=== PATIENT | male | born 2000 | race Caucasian/White ===

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

== ENCOUNTER 2021-09-10 00:57 | Emergency (ER) | payer OTHER ==
[2021-09-10 01:23] VITALS: BP 145/51; PULSE 110; TEMP 97.6; BMI 21.5
[2021-09-10 02:43] LABS: BASO % 0.7 % (0-2.0); EOS % 1.5 % (0-4.5); HEMATOCRIT 43.8 % (35.4-49); HEMOGLOBIN 14.9 GM/dL (11.7-16.9); LYMPH % 11.2 % (8-40); MCH 29.3 pg (25.7-33.7); MEAN CELL VOLUME 86.2 fl (80-96); MEAN PLT VOLUME 7.6 fl (7.5-11.1); MONO % 5.8 % (3.8-10.2); NEUT % 80.8 % (42.8-82.8); PLATELET COUNT 247 10^3/uL (134-434); RBC 5.08 M/mm3 (4.00-5.60); RDW 13.2 % (11.9-15.9); WHITE BLOOD COUNT 9.9 K/mm3 (4.0-10.0)
[2021-09-10 03:04] LABS: CALCIUM 9.2 mg/dL (8.5-10.1)
[2021-09-10 03:05] LABS: ALBUMIN 4.6 g/dl (3.4-5.0); BLOOD UREA NITROGEN 16.2 mg/dL (7-18); MAGNESIUM 2.1 mg/dL (1.8-2.4)
[2021-09-10 03:08] LABS: CREATININE 0.9 mg/dL (0.55-1.3)
[2021-09-10 03:09] LABS: BILIRUBIN,TOTAL 0.7 mg/dL (0.2-1)
[2021-09-10 03:10] LABS: TOT PROT 7.8 g/dl (6.4-8.2)
== END 2021-09-10 03:48 | disposition home or self-care (01) ==
LOC: JER 00:57
DX: R00.2 Palpitations (principal)
CPT/HCPCS: 36415; 71045-TC-FY; 80053; 82962; 83735; 84443; 84484; 85025; 93005; 93010; 99285-25

== ENCOUNTER 2022-05-13 01:21 | Emergency (ER) | payer OTHER ==
[2022-05-13 02:00] VITALS: BP 137/78; PULSE 74; RESP 16; TEMP 98; BMI 27.3
[2022-05-13 02:42] LABS: URINE APPEARANCE CLEAR; URINE BILIRUBIN NEGATIVE (NEGATIVE); URINE COLOR YELLOW; URINE GLUCOSE (UA) NEGATIVE (NEGATIVE); URINE KETONE TRACE (NEGATIVE); URINE LEUK ESTERASE NEGATIVE (NEGATIVE); URINE NITRITE NEGATIVE (NEGATIVE); URINE PROTEIN TRACE (NEGATIVE)
== END 2022-05-13 03:18 | disposition home or self-care (01) ==
LOC: JER 01:21
DX: I86.1 Scrotal varices (principal); N50.812 Left testicular pain
CPT/HCPCS: 36415; 76870-TC; 81003; 87086; 87491; 87591; 99284-25

== ENCOUNTER 2022-07-12 20:05 | Emergency (ER) | payer OTHER ==
[2022-07-12 20:22] VITALS: BP 117/70; PULSE 92; RESP 22; TEMP 98.3; BMI 27.9
[2022-07-12 21:39] LABS: THROAT:GRP A STREP NOT DETECTED (NOTDETECTED)
[2022-07-13] MEDS ORDERED: KETOROLAC TROMETHAMINE 30 MG/1 ML VIAL IM ONE (00:43)
[2022-07-13] MEDS ORDERED: DEXAMETHASONE SOD PHOSPHATE 10 MG/1 ML VIAL IM ONE (00:43)
[2022-07-13] MEDS ORDERED: ACETAMINOPHEN 325 MG TABLET (FP) PO ONE (00:43)
[2022-07-13] MEDS ORDERED: DEXAMETHASONE SOD PHOSPHATE 10 MG/1 ML VIAL ONE (00:44)
[2022-07-13] MEDS ORDERED: KETOROLAC TROMETHAMINE 30 MG/1 ML VIAL ONE (00:45)
[2022-07-13] MEDS ORDERED: ACETAMINOPHEN 325 MG TABLET (FP) ONE (00:45)
== END 2022-07-13 02:08 | disposition home or self-care (01) ==
LOC: JERFT 20:05 → JER 20:05
PROC: 3E033GC Introduction of Other Therapeutic Substance into Peripheral Vein, Percutaneous Approach (ICD-10-PCS; principal; 2022-07-13)
PROC: 3E0333Z Introduction of Anti-inflammatory into Peripheral Vein, Percutaneous Approach (ICD-10-PCS; 2022-07-13)
DX: R07.0 Pain in throat (principal); R05.9 Cough, unspecified; R09.81 Nasal congestion; J06.9 Acute upper respiratory infection, unspecified; Z20.822 Contact with and (suspected) exposure to COVID-19
CPT/HCPCS: 0241U-QW; 71046-TC-FY; 87070; 87651; 93005; 93010; 99285-25; J1100

== ENCOUNTER 2023-04-18 18:30 | Emergency (ER) | payer SELFPAY ==
[2023-04-18 18:35] VITALS: BP 130/82; PULSE 110; RESP 18; TEMP 98.5; BMI 25.8
[2023-04-18] MEDS ORDERED: ONDANSETRON *ODT* 4 MG TABLET ONE ×2 (19:28→20:51)
[2023-04-18] MEDS: ONDANSETRON *ODT* 4 MG TABLET SL ONE (19:29)
[2023-04-18] MEDS: ONDANSETRON 4 MG/2 ML VIAL IVPB ONE (19:30)
[2023-04-18] MEDS: ONDANSETRON 4 MG TABLET PO ONE (21:19)
[2023-04-18] MEDS: SODIUM CHLORIDE 0.9% 500 ML INFUS.BAG IV ONE (21:19)
== END 2023-04-18 21:20 | disposition home or self-care (01) ==
LOC: JER 18:30
DX: R11.2 Nausea with vomiting, unspecified (principal); R09.81 Nasal congestion; R05.9 Cough, unspecified; M79.10 Myalgia, unspecified site; R50.9 Fever, unspecified; J10.1 Influenza due to other identified influenza virus with other respiratory manifestations; Z20.822 Contact with and (suspected) exposure to COVID-19
CPT/HCPCS: 0241U-QW; 99283-25; Q0162

== ENCOUNTER 2023-08-25 23:23 | Emergency (ER) | payer SELFPAY ==
[2023-08-25 23:29] VITALS: BP 103/61; PULSE 101; RESP 20; TEMP 98.8; BMI 24.0
[2023-08-26] MEDS ORDERED: DIPHTH,PERTUSS(ACELL),TET 0.5 ML DISP.SYRIN IM ONE (00:15)
[2023-08-26] MEDS: DIPHTH,PERTUSS(ACELL),TET 0.5 ML DISP.SYRIN IM ONE (00:19)
== END 2023-08-26 00:42 | disposition home or self-care (01) ==
LOC: JER 23:23
PROC: 0HQ1XZZ Repair Face Skin, External Approach (ICD-10-PCS; principal; 2023-08-25)
PROC: 3E0234Z Introduction of Serum, Toxoid and Vaccine into Muscle, Percutaneous Approach (ICD-10-PCS; 2023-08-26)
DX: S01.112A Laceration without foreign body of left eyelid and periocular area, initial encounter (principal); S50.311A Abrasion of right elbow, initial encounter; S30.811A Abrasion of abdominal wall, initial encounter; W01.198A Fall on same level from slipping, tripping and stumbling with subsequent striking against other object, initial encounter; Y93.67 Activity, basketball; Z23 Encounter for immunization
CPT/HCPCS: 90715; 99284-25

== ENCOUNTER 2023-09-04 07:40 | Emergency (ER) | payer SELFPAY ==
[2023-09-04 07:51] VITALS: BP 115/69; PULSE 70; RESP 18; TEMP 98.2; BMI 24.3
== END 2023-09-04 08:12 | disposition home or self-care (01) ==
LOC: JERFT 07:40 → JER 07:40 → JERFT 08:12
DX: Z48.02 Encounter for removal of sutures (principal)
CPT/HCPCS: 99281-25

== ENCOUNTER 2024-01-19 01:02 | Emergency (ER) | payer SELFPAY ==
[2024-01-19 01:12] VITALS: BP 120/70; PULSE 66; RESP 20; TEMP 98; BMI 26.1
== END 2024-01-19 02:57 | disposition home or self-care (01) ==
LOC: JER 01:02
PROC: 0XQWXZZ Repair Left Little Finger, External Approach (ICD-10-PCS; principal; 2024-01-19)
DX: S61.215A Laceration without foreign body of left ring finger without damage to nail, initial encounter (principal); S61.217A Laceration without foreign body of left little finger without damage to nail, initial encounter; S61.210A Laceration without foreign body of right index finger without damage to nail, initial encounter; W25.XXXA Contact with sharp glass, initial encounter
CPT/HCPCS: 99282-25

== ENCOUNTER 2024-01-20 01:43 | Emergency (ER) | payer SELFPAY ==
[2024-01-20 01:50] VITALS: BP 111/57; PULSE 71; RESP 18; TEMP 98.2; BMI 26.5
== END 2024-01-20 02:35 | disposition home or self-care (01) ==
LOC: JER 01:43
DX: Z48.01 Encounter for change or removal of surgical wound dressing (principal)
CPT/HCPCS: 99281-25

== ENCOUNTER 2024-02-01 20:29 | Emergency (ER) | payer SELFPAY ==
[2024-02-01 20:36] VITALS: BP 124/72; PULSE 93; RESP 18; TEMP 98; BMI 26.5
== END 2024-02-01 22:10 | disposition home or self-care (01) ==
LOC: JERFT 20:29
DX: Z48.02 Encounter for removal of sutures (principal)
CPT/HCPCS: 99281-25